=== PATIENT | male | born 1995 | race Caucasian/White ===

== ENCOUNTER 2020-06-27 11:11 | Emergency (ER) | payer OTHER, SELFPAY ==
--- NOTE | ~2020-06-27 | CT_ITS ---
EXAMINATION: CT facial bones w con DATE: 06/27/2020 12:47 INDICATION: Right jaw pain. Swelling. Injury. TECHNIQUE: Computed tomography (CT) of the facial bones and maxillofacial region was performed with 7 5 mL Omnipaque 350 intravenous contrast. Automated exposure control and iterative reconstruction tech [employer] were employed. The dose-length product was 321.87 mGy-cm. COMPARISON: None. FINDINGS: There is mucosal thickening in the paranasal sinuses. There is an oblique fracture of the r ight angle of the mandible that involves the socket of tooth 32. The anterior fracture fragment demon strates 3 mm inferior displacement. There is soft tissue swelling of the right cheek. There is right- sided submandibular lymphadenopathy, likely reactive. IMPRESSION: 1. Oblique fracture of right angle of the mandible involving the socket of tooth 32. 2. Right submandibular lymphadenopathy, likely reactive. Reviewed, dictated and finalized at location B. OPSYCHOLOGY MEDICAL CONSULTANT IMPRESSION: 1. Oblique fracture of right angle of the mandible involving the socket of toot h 32. 2. Right submandibular lymphadenopathy, likely reactive.
--- NOTE | ~2020-06-27 | XR_ITS ---
EXAMINATION: XR chest 1V portable DATE: 06/27/2020 14:43 INDICATION: Fever. TECHNIQUE: A single frontal view of the chest was obtained on 2 radiographs. COMPARISON: None. FINDINGS: The chest demonstrates clear lungs without pneumonia, pleural effusion, or pneumothorax. Th e heart size is normal. IMPRESSION: 1. No acute cardiopulmonary disease. Reviewed, dictated and finalized at location B. TION CLERK
[2020-06-27 11:12] VITALS: BP 146/66; PULSE 114; RESP 20; TEMP 37.8; O2SAT 97
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
[2020-06-27 11:49] LABS: Basophils Percent Auto 0.5 % (0.2-1.2); Eosinophils Absolute Auto 0.1 K/mm3 (0-0.3); Eosinophils Percent Auto 1.3 % (0-4.4); Hematocrit 47.3 % (42.0-52.0); Immature Granulocyte Absolute 0.03 K/mm3 (0.00-0.031); Immature Granulocyte Percent A 0.3 % (0-0.5); Lymphocytes Absolute Auto 1.39 K/mm3 (0.9-3.2); Lymphocytes Percent Auto 16.1 % (18.3-44.2); Mean Corpuscular HGB Conc 33.8 g/dl (32-36); Mean Corpuscular Hemoglobin 30.3 pg (26-34); Mean Corpuscular Volume 89.6 fl (80-100); Mean Platelet Volume 9.5 fl (7.4-10.4); Monocytes Absolute Auto 0.8 K/mm3 (0.1-0.6); Monocytes Percent Auto 9.4 % (2.6-8.5); Neutrophils Absolute Auto 6.3 K/mm3 (1.3-6.7); Neutrophils Percent Auto 72.4 % (45.5-73.1); Platelet Count Result 452 k/mm3 (150-375); Red Blood Count 5.28 M/mm3 (4.6-6.20); Red Cell Distribution Width 11.8 % (11.5-14.5); White Blood Count 8.6 K/mm3 (4.5-10.0)
[2020-06-27 12:38] LABS: Anion Gap 10 mmol/L (8-16); Blood Urea Nitrogen 22 mg/dL (9-20); CRP 6.8 mg/dL (<1.0); Calcium 9.6 mg/dL (8.4-10.2); Carbon Dioxide 30 mmol/L (22-30); Chloride 103 mmol/L (98-107); Estimated CRCL calculation 127 ml/min; Estimated Glomerular Filt Rate > 60; Glucose 98 mg/dL (75-110); Potassium 3.9 mmol/L (3.4-5.0); Sodium 143 mmol/L (137-145)
[2020-06-27 12:42] LABS: Estimated CRCL calculation 114 ml/min; Estimated Glomerular Filt Rate > 60
[2020-06-27 12:50] LABS: Erythrocyte Sedimentation Rate 18 mm/hr (0-20)
[2020-06-27 14:02] VITALS: BP 128/81; PULSE 97; RESP 16; TEMP 37.9; O2SAT 99
[2020-06-28 00:30] LABS: SARS-CoV-2 RNA PCR Negative
== END 2020-06-27 15:51 | disposition home or self-care (01) ==
PROVIDERS: Physician Assistant; Emergency Provider Emergency Medicine
DX: Z20.828 Contact with and (suspected) exposure to other viral communicable diseases (principal); S02.651A Fracture of angle of right mandible, initial encounter for closed fracture; Y04.0XXA Assault by unarmed brawl or fight, initial encounter
CPT/HCPCS: 36415; 70487; 71045; 80048; 85025; 85652; 86140; 87635; 96365; 99284; C9803; J0131; Q9967; U0003